=== PATIENT | female | born 1995 | race Caucasian/White ===

== ENCOUNTER 2020-08-23 07:55 | Emergency (ER) | payer OTHER ==
[~2020-08-23] VITALS: Ht 147.3 cm; Wt 84.2 kg
--- NOTE | 2020-08-23 09:55 | NUR ---
business support associate: pt from lobby to room [id number]
[2020-08-23] MEDS ORDERED: PRE NATAL VITAMIN PO (10:01)
[2020-08-23] MEDS ORDERED: ACETAMINOPHEN 325 MG TABLET PO ONE (12:30)
[2020-08-23 12:32] VITALS: BP 117/71
--- NOTE | 2020-08-23 12:33 | NUR ---
D/C INSTRUCTIONS & F/U APPT RV'WD WITH PT, SHE VERBALIZES UNDERSTANDING. INSTRUCTED TO RETURN TO ED FOR ANY WORSENING OR CONCERNING SYMPTOMS. PT AMBULATED OUT OF ED WITHOUT DIFFICULTY.
== END 2020-08-23 12:32 | disposition home or self-care (01) ==
LOC: ED 12:26
DX: O26.892 Other specified pregnancy related conditions, second trimester (principal); R20.2 Paresthesia of skin; M79.605 Pain in left leg; Z3A.14 14 weeks gestation of pregnancy
CPT/HCPCS: 99282